=== PATIENT | male | born 1975 | race Asian ===

== ENCOUNTER 2019-11-13 21:28 | Emergency (ER) | payer MEDICAID ==
[~2019-11-13] VITALS: Ht 182.9 cm; Wt 133.8 kg
[2019-11-13 21:42] VITALS: BP 138/87
--- NOTE | 2019-11-13 21:42 | NUR ---
ED Nurse Note: Pt walked in to ED c/o right hand fourth digit pain x2 days ago. Pt stated he touched a shelf and might have gotten a splinter. Noted with redness and swelling. at bedside.
--- NOTE | 2019-11-13 21:51 | Emergency Room Report ---
History of Present Illness General Chief Complaint: Abdominal Pain Source: Patient Present Illness HPI Disclaimer: Please note that this report is being documented using DRAGON technology. This can lead to erroneous entry secondary to incorrect interpretation by the dictating instrument. HPI: 44-year-old male presents for removal of splinter. They states 2 days ago he brushed up against a chair and sustained a wooden splinter underneath the ring finger on the right hand. A friend of his who is a doctor tried to remove it was unsuccessful. He notes no tenderness and swelling and redness around the tip of the finger. Denies any numbness or tingling. Denies skin breakdown or oozing. No other injury sustained. Unknown last tetanus. Allergies: Coded Allergies: No Known Allergies (Unverified , 11/13/19) Nursing Documentation-[facility] Past Medical History: No Stated History Review of Systems All Other Systems: negative except mentioned in HPI Physical Exam Vital Signs Date Time Temp Pulse Resp B/P (MAP) Pulse Ox O2 Delivery O2 Flow Rate FiO2 11/13/19 21:36 98.4 75 16 138/87 (104) 95 Room Air General: Awake and alert, no acute distress HEENT: NC/AT. EOMI. Resp: Normal work of breathing Skin: Intact. No abrasions, laceration or rash over the exposed skin MSK: Normal tone and bulk. Moving all extremities. No obvious deformity. There is tenderness over the distal pad of the right ring finger with mild erythema but no significant edema. There is a visible 2 cm long and thin presumably wooden splinter just beneath the nail without surrounding bleeding, no hematoma, no purulent drainage. Neuro: Awake and alert. Mentating appropriately Procedures Incision and Drainage Incision and Drainage : Consent: Verbal Blade Size: 11 I & D Procedure: betadine prep, sterile drapes applied, sterile dressing applied Wound Location: upper extremity Wound's Depth, Shape: other - Subungual foreign body Wound Explored: foreign body removed Anesthesia: 1% Lidocaine Volume Anesthetic (ccs): 10 Patient Tolerated: Well Complications: None Progress A digital nerve block was performed using approximately 10 cc 1% lidocaine without epinephrine with good effect. An 11 blade scalpel was used to remove the 2 cm long wooden splinter from below the fingernail on the right ring finger. No complications. No bleeding. Patient tolerated procedure well. He was neurologically and vascularly intact at the start and end of the procedure. Medical Decision Making Diagnostic Impression: Primary Impression: Splinter ER Course 44-year-old male presents for evaluation of splinter in the right hand. 2 cm splinter removed at bedside without complication. Given the 2 days has a foreign body was in the patient's hand and swelling and worsening pain concern for early and superficial cellulitis. Will start on Keflex and Motrin. Tetanus was updated. Follow-up with PMD. We discussed reasons to return to the emergency department. He understands and agrees with this treatment plan. Last Vital Signs Date Time Temp Pulse Resp B/P (MAP) Pulse Ox O2 Delivery O2 Flow Rate FiO2 11/13/19 21:36 98.4 75 16 138/87 (104) 95 Room Air Disposition: HOME, SELF-CARE Condition: Improved Scripts Ibuprofen* (MOTRIN*) 600 Mg Tablet 600 MG ORAL Q8H PRN for For Pain, #30 TAB 0 Refills Prov: Leonard Corbin MD 11/13/19 Cephalexin* (KEFLEX*) 500 Mg Capsule 500 MG ORAL EVERY 12 HOURS, #14 CAP 0 Refills Prov: Leonard Corbin MD 11/13/19 Leonard Corbin MD Nov 13, 2019 21:51
[2019-11-13] MEDS ORDERED: Lidocaine 1% Plain 30 ml INJ ONE (22:00)
[2019-11-13] MEDS ORDERED: IBUPROFEN600 MG ORAL (22:18)
[2019-11-13] MEDS ORDERED: CEPHALEXIN500 MG ORAL (22:18)
[2019-11-13 22:23] VITALS: BP 138/87
--- NOTE | 2019-11-13 22:23 | NUR ---
ED Nurse Note: Pt cleared by ERMD for discharge. DC instructions/prescription was given and explained to pt and verbalized understanding of teachings. All medical deviecs such as ID band removed. Pt is AAO x4, ambulatory and left with all personal belongings.
[2019-11-13] MEDS ORDERED: Tetanus/Diptheria/Pertussis IM ONE (22:30)
== END 2019-11-13 22:23 | disposition home or self-care (01) ==
LOC: EMR 22:15
DX: S60.454A Superficial foreign body of right ring finger, initial encounter (principal); W45.8XXA Other foreign body or object entering through skin, initial encounter; Y93.89 Activity, other specified; Y92.9 Unspecified place or not applicable
CPT/HCPCS: 10060; 90471; 90715; J2001; Z7502; 99282